=== PATIENT | male | born 1985 ===

== ENCOUNTER 2018-02-11 21:37 | Emergency (ER) | payer BC ==
[2018-02-11 21:50] VITALS: BP 119/65; PULSE 85; RESP 18; TEMP 97.9; O2SAT 95
--- NOTE | 2018-02-11 21:57 | ED PDOC ---
HPI: General Adult Time Seen by Provider: 02/11/18 21:56 Chief Complaint (Nursing): Rib Injury Chief Complaint (Provider): rib pain History Per: Patient Additional Complaint(s): 32 year old male presents to ED with pain to left rib region s/p twisting his body while doing jiu jitsu earlier today. Patient now has pain with movement and worsening pain when he takes a deep breath in. He did not take any meds for pain relief prior to arrival. PMD: [facility] Past Medical History Reviewed: Historical Data, Nursing Documentation, Vital Signs Vital Signs: Last Vital Signs Temp 97.9 F 02/11/18 21:46 Pulse 85 02/11/18 21:46 Resp 18 02/11/18 21:46 BP 119/65 02/11/18 21:46 Pulse Ox 95 02/11/18 22:06 - Medical History PMH: No Chronic Diseases - Surgical History Surgical History: Appendectomy, Hernia Repair (x 2) - Family History Family History: States: No Known Family Hx - Living Arrangements Living Arrangements: With Family - Social History Current smoker - smoking cessation education provided: No Alcohol: Social Drugs: Denies - Home Medications Home Medications: Ambulatory Orders Medication Instructions Recorded Cyclobenzaprine [Cyclobenzaprine 10 mg PO TID PRN #20 tab 02/11/18 HCl] Naproxen [Naprosyn] 500 mg PO BID #20 tab 02/11/18 - Allergies Allergies/Adverse Reactions: Allergies Allergy/AdvReac Type Severity Reaction Status Date / Time Penicillins Allergy RASH Verified 02/11/18 21:50 Review of Systems ROS Statement: Except As Marked, All Systems Reviewed And Found Negative Cardiovascular: Positive for: Other (left rib pain s/p injury) Physical Exam - Reviewed Nursing Documentation Reviewed: Yes Vital Signs Reviewed: Yes - Physical Exam Appears: Positive for: Well, Non-toxic, No Acute Distress Skin: Positive for: Normal Color. Negative for: Rash Eye Exam: Positive for: Normal appearance Neck: Negative for: Pain On Movement Of Neck Cardiovascular/Chest: Positive for: Regular Rate, Rhythm, Other (Mild tenderness along the left costal margin with no palpable bony deformity, slight tenderness to left lateral chest wall with no ecchymosis or swelling) Respiratory: Positive for: Normal Breath Sounds. Negative for: Respiratory Distress Gastrointestinal/Abdominal: Positive for: Soft. Negative for: Tenderness, Distended, Guarding, Rebound Back: Negative for: L CVA Tenderness, R CVA Tenderness Extremity: Positive for: Normal ROM Neurologic/Psych: Positive for: Alert, Oriented - ECG Interpretation Of ECG: Normal sinus rhythm 75 bpm with no acute changes, reviewed by PA and ED attending O2 Sat by Pulse Oximetry: 95 Pulse Ox Interpretation: Normal - Other Rad CXR with left rib series X-Ray: Interpreted by Me, Viewed By Me X-Ray Interpretation: no fx, no dis Medical Decision Making Medical Decision Makin32 year old with left rib pain Plan: EKG CXR with left rib series IM toradol PO flexeril Incentive Spirometer Patient is aware of x-ray results, all questions answered. Prescriptions given for Naprosyn and Flexeril. Incentive spirometer provided. Patient was instructed to follow-up in 2-3 days primary doctor. Disposition - Clinical Impression Clinical Impression: Rib contusion - Patient ED Disposition Is Patient to be Admitted: No Counseled Patient/Family Regarding: Studies Performed, Diagnosis, Need For Followup, Rx Given - Disposition Referrals: [facility], [facility] [Outside] Disposition: Routine/Home Disposition Time: 22:41 Condition: STABLE Additional Instructions: Ice and rest the affected area. Avoid strenuous activity for 3-4 days. Take prescription meds as directed as needed for pain. Use incentive spirometer as directed as often as possible. Follow up with primary doctor in 2-3 days. Prescriptions: Cyclobenzaprine [Cyclobenzaprine HCl] 10 mg PO TID PRN #20 tab PRN Reason: Muscle Spasm Naproxen [Naprosyn] 500 mg PO BID #20 tab Instructions: Bruised Rib (DC), How to Use an Incentive Spirometer Forms: [employer] ([place])
--- NOTE | 2018-02-12 10:14 | RAD ---
PROCEDURE: Radiographs of the Chest and Left Ribs. HISTORY: trauma COMPARISON: None available. TECHNIQUE: Frontal radiograph of the chest and multiple oblique radiographs of the left ribs were obtained. FINDINGS: LEFT RIBS: No fracture or focal lesion visualized. LUNGS: No infiltrate, pleural effusion or pneumothorax identified. Cardiomediastinal silhouette appears unremarkable. No pulmonary vascular derangement identified. PLEURA: As above. CARDIOVASCULAR: As above. OTHER FINDINGS: None. IMPRESSION: Unremarkable radiographs of the chest and left ribs. No left rib fracture.
== END 2018-02-11 23:13 | disposition home or self-care (01) ==
LOC: H.ER 21:37
DX: S20.219A Contusion of unspecified front wall of thorax, initial encounter (principal); X50.9XXA Other and unspecified overexertion or strenuous movements or postures, initial encounter; Y92.89 Other specified places as the place of occurrence of the external cause; Z88.0 Allergy status to penicillin
CPT/HCPCS: 71101; 96372; 99283; J1885